=== PATIENT | male | born 1940 | race Caucasian/White ===

== ENCOUNTER 2019-11-22 12:54 | Outpatient (CLI) | payer MEDICARE, SELFPAY ==
--- NOTE | 2019-11-22 15:00 | NEURO_ITS ---
Patient Number: [id number] Impression: # Complains of numbness of lower extremities. 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 # Needle/EMG exam not requested. # Clinical correlation recommended. Nerve Conduction Studies Anti Sensory Summary Table Stim Site NR Peak (ms) P-T Amp (?V) Site1 Site2 Delta-P (ms) Dist (cm) Sami (m/s) Left Sup Fibular Anti Sensory (Ant Lat Mall) 14 cm 7.5 14.8 14 cm Ant Lat Mall 7.5 16.0 21 Right Sup Fibular Anti Sensory (Ant Lat Mall) NO RESPONSE 14 cm NR 14 cm Ant Lat Mall 16.0 Left Sural Anti Sensory (Lat Mall) Calf 3.2 11.7 Calf Lat Mall 3.2 16.0 50 Right Sural Anti Sensory (Lat Mall) NO RESPONSE Calf NR Calf Lat Mall 16.0 Motor Summary Table Stim Site NR Onset (ms) O-P Amp (mV) Site1 Site2 Delta-0 (ms) Dist (cm) Sami (m/s) Left Peroneal Motor (Vastus Med) Ankle 5.9 0.8 Popit Ankle 9.5 37.0 39 Popit 15.4 0.5 Right Peroneal Motor (Vastus Med) NO RESPONSE Ankle NR Popit Ankle 0.0 Popit NR Left Tibial Motor (Abd Padilla Brev) NO RESPONSE Ankle NR Knee NR Right Tibial Motor (Abd Padilla Brev) Ankle 5.5 0.2 Knee Ankle 11.4 42.0 37 Knee 16.9 0.2 F Wave Studies NR F-Lat (ms) L-R F-Lat (ms) Left Peroneal (Mrkrs) (EDB) 63.63 Right Peroneal (Mrkrs) (EDB) NO RESPONSE NR Left Tibial (Mrkrs) (Abd Hallucis) NO RESPONSE NR Right Tibial (Mrkrs) (Abd Hallucis) NO RESPONSE NR MTDD
== END 2019-11-22 12:55 | disposition home or self-care (01) ==
LOC: ANHNEURO 12:55
PROVIDERS: PCP Internal Medicine; Visit Provider Internal Medicine
DX: G62.9 Polyneuropathy, unspecified (principal)
CPT/HCPCS: 95910

== ENCOUNTER 2020-04-11 10:12 | Outpatient (CLI) | payer MEDICARE, SELFPAY ==
--- NOTE | ~2020-04-11 | CT_ITS ---
EXAMINATION: CT abdomen pelvis w con DATE: 04/11/2020 10:56 INDICATION: Prostate cancer TECHNIQUE: Computed tomography (CT) of the abdomen and pelvis was performed with 100 cc Omnipaque 350 intravenous contrast. Automated exposure control and iterative reconstruction technique were employe d. Exam dose: 674.24 mGy-cm total exam DLP. COMPARISON: None. FINDINGS: There is mild dependent atelectasis at the right lower lobe. There is more prominent discoi d atelectasis and/or scarring at the left lung base, left lower lobe. Normal heart size. Coronary artery calcification. No pericardial or pleural effusion. 8 and 13 mm right hepatic probable cysts. At least a couple of very small additional hepatic cysts ar e suggested. The gallbladder is present and appears unremarkable. No bile duct or pancreatic duct dilatation. No p ancreatic mass lesion or calcification. Normal splenic size. No adrenal mass lesion. 7.5 mm lower pole right renal cyst. 1.4 cm upper pole left renal cyst. 4 mm probable lateral mid left renal cyst. No urinary tract calculus or hydroureteronephrosis. There is prostate enlargement and calcification. There is moderate diffuse thickening of the urinary bladder wall. Normal appendix. Redundant sigmoid colon. There is a prominent amount of fecal material in the colon. There there are occasional diverticula of the left and right colon; no CT evidence of diverticulitis. No bowel obstruction, bowel wall thickening, pneumatosis or intraperitoneal free air. No intraperitoneal or retroperitoneal or pelvic mass lesion or adenopathy or ascites. There is calcification of the abdominal aorta and iliac arteries but no abdominal aortic aneurysm. No suspicious osteolytic or osteoblastic lesions. Diffuse idiopathic skeletal hyperostosis of the thoracic spine. Mild to moderate anterior wedge compression fracture deformity of L2. Moderate degenerative disc disease and mild retrolisthesis at L2-3. There is moderately severe degene rative disease at L3-4, L4-5 and L5-S1. IMPRESSION: Prostate enlargement and calcification; no prostate metastasis is evident Hepatic and renal cysts Diverticulosis of the colon; no CT evidence of diverticulitis Reviewed, dictated and finalized at [facility]. Reviewed, dictated and finalized at location [facility]. ATOR PILOT
--- NOTE | ~2020-04-11 | NM_ITS ---
EXAMINATION: NM bone scan whole body DATE: 04/11/2020 14:00 INDICATION: Prostate cancer. TECHNIQUE: 22.2 mCi Tc-99m HDP was administered intravenously. Delayed whole-body scintigrams were o btained. COMPARISON: CT abdomen and pelvis 04/11/2020 FINDINGS: There is joint-centered increased activity in the knees and hands without radiographic comp arison, likely osteoarthritis. There is joint-centered and disc-centered increased activity in the jerrod mbar spine correlating with spondylosis by CT. IMPRESSION: 1. No evidence of metastatic disease. Reviewed, dictated and finalized at location [facility]. TECHNICIAN
[2020-04-11 10:43] LABS: Estimated Glomerular Filt Rate > 60
== END 2020-04-11 10:13 | disposition home or self-care (01) ==
LOC: ANHIMG 10:14
PROVIDERS: PCP Internal Medicine; Visit Provider Urology
DX: C61 Malignant neoplasm of prostate (principal); N28.1 Cyst of kidney, acquired; K76.89 Other specified diseases of liver; K57.30 Diverticulosis of large intestine without perforation or abscess without bleeding
CPT/HCPCS: 74177; 78306; A9561; Q9967

== ENCOUNTER → 2020-05-24 00:57 | Outpatient (CLI) | payer MEDICARE, SELFPAY ==
[2020-05-24 19:13] LABS: SARS-CoV-2 RNA PCR Negative
== END ==
PROVIDERS: PCP Internal Medicine; Visit Provider Urology
DX: Z01.812 Encounter for preprocedural laboratory examination (principal); Z20.822 Contact with and (suspected) exposure to COVID-19
CPT/HCPCS: C9803; U0003; U0005

== ENCOUNTER 2020-05-27 01:45 | Day surgery (SDC) | payer MEDICARE, SELFPAY ==
[2020-05-20 13:48] VITALS: BMI 28.5
[2020-05-27] VITALS (7 sets, daily range): BP systolic 81–159; BP diastolic 52–85; PULSE 51–57; RESP 11–19; TEMP 36.2–36.6; O2SAT 96–100
--- NOTE | 2020-05-27 13:43 | WPDHPUPDATE1 ---
History and Physical Update Update Date/Time: 05/27/20 13:43 History and Physical has been reviewed, including an updated exam of the patient. There are NO changes in the patient's condition. Risks, benefits, and alternatives have been discussed and questions answered. Patient agrees to proceed with procedure. Proceed with space oar placement
[2020-05-27] MEDS: LACTATED RINGERS 1,000 ML 30 ML IV CONT (14:22)
--- NOTE | 2020-05-27 14:31 | WPDANESEPPF ---
Anes - Initial Pre Proc Eval Procedure: Operation Date: 05/27/20 15:30 Proposed Procedures p Insertion SpaceOAR Hydrogel System - Timmy Pa MD Date/Time: 05/27/20 14:31 Surgeon: Timmy Pa MD Pre Op Diagnosis: Prostate CA Patient Data Age: 80 Gender: M Height: 5 ft 8 in Weight: 83.1 kg Last Vital Signs Temp 36.6 C 05/27/20 13:35 Pulse 57 L 05/27/20 13:35 Resp 16 05/27/20 13:35 BP 149/85 H 05/27/20 13:35 Pulse Ox 100 05/27/20 13:35 Allergies Allergy/AdvReac Type Severity Reaction Status Date / Time atorvastatin [From Lipitor] AdvReac Intermediate Joint Pain Verified 05/27/20 13:31 pregabalin AdvReac Intermediate Swelling Verified 05/27/20 13:31 Home Medications Medication Instructions Recorded Confirmed Type amlodipine 10 mg HS 05/20/20 05/27/20 History aspirin [Aspir-81] 81 mg PO DAILY 05/20/20 05/27/20 History atorvastatin 10 mg DAILY 05/20/20 05/27/20 History carvedilol 25 mg PO BID 05/20/20 05/27/20 History finasteride 5 mg HS 05/20/20 05/27/20 History lisinopril 20 mg DAILY 05/20/20 05/27/20 History niacin 500 mg PO BID 05/20/20 05/27/20 History omeprazole 30 mg PO DAILY 05/20/20 05/27/20 History Patient hx anesthesia problems: none Family hx anesthesia problems: none [facility] Past Medical History Medical History (Updated 05/27/20 @ 14:32 by Simeon Carrillo MD) HTN (hypertension) Hyperlipidemia Prostate cancer Social History Social History Smoking packs per day: 1 Smoking cigarettes per day: 20.0 Years smoked: 10 Smoking pack-years: 10.00 Smoking status: Former smoker Tobacco type: cigarettes Second hand tobacco smoke exposure: No Additional smoking assessment comments: PT UNABLE TO RECALL WHEN QUITTING, STATES LONG TIME AGO Alcohol intake: current Alcohol use details: STATES MAY BE 1-2 DRINKS EVERY 3 MONTHS OR SO Substance use: never Substance use type: does not use Living arrangements: alone Spiritual care concerns: No Anes - Eval Final PreProcedure Day of Procedure 05/27/20 14:31 Patient weight: overweight Heart: regular rate and rhythm Lungs: clear to auscultation Airway: Mallampati scale class II Neurological: alert and oriented Last oral intake: >/= 8 hours ASA classification: III Emergent: no Anesthetic plan: proceed Anesthesia type and monitoring: general LMA and standard monitoring Informed Consent: The patient's anesthetic plan and its attendant risks and benefits were discussed with the patient/family/POA. Questions were solicited and answers provided to the satisfaction of the patient/family/POA.
[2020-05-27] MEDS: ceFAZolin 2 GM/D5W 50 ML 2 GM/50 ML BAG IVPB (15:12)
--- NOTE | 2020-05-27 15:28 | PM.PROC ---
Procedure Note - Detailed Date of procedure: 05/27/20 Pre-op diagnosis: Prostate CA Post-op diagnosis: same Procedure performed: space oar, and trus Description of procedure: Patient is taken to the operative suite and correctly identified. Once anesthesia was obtained he was placed in a dorsal lithotomy position and prepped in usual sterile fashion. Transrectal ultrasound was then performed. The prostate was visualized in both sagittal and transverse planes. Using a spinal needle we inserted into the plane between the prostate and the rectum. 1 cc of normal saline was injected to create the separation. There was no evidence of bleeding on aspiration. The space oar mixture was then injected into this plane. There was good separation of the prostate from the rectum. This visualized again in both sagittal and transverse planes. Patient tolerated procedure well without any complications and was taken recovery room stable condition. Anesthesia: GLMA Surgeon: Timmy Pa MD Drains: No Packing: No Pathology: none sent Complications: No immediate complications Condition: stable Disposition: PACU
== END 2020-05-27 17:00 | disposition home or self-care (01) ==
PROVIDERS: PCP Internal Medicine; Visit Provider Urology
PROC: (CPT 55874; principal; 2020-05-27 15:30)
DX: C61 Malignant neoplasm of prostate (principal); I10 Essential (primary) hypertension; E78.5 Hyperlipidemia, unspecified; Z87.891 Personal history of nicotine dependence; Z79.82 Long term (current) use of aspirin
CPT/HCPCS: 55874; A9270; C1889; C9803; J0690; J7120; U0003; U0005

== ENCOUNTER 2020-06-04 12:24 | Outpatient (CLI) | payer MEDICARE, SELFPAY ==
--- NOTE | ~2020-06-04 | MR_ITS ---
EXAMINATION: MR pelvis wo/w con DATE: 06/04/2020 13:46 INDICATION: Prostate cancer. TECHNIQUE: Magnetic resonance imaging (MRI) of the pelvis was performed without and with 16 mL MultiH ance intravenous contrast. Sequences included axial and coronal FS FIESTA, coronal T2-weighted FS FSE , axial T2-weighted FSE, axial STIR FSE, coronal and axial LAVA, axial dual-echo T1-weighted FSPGR, a nd axial DWI. Postcontrast sequences included coronal LAVA-flex and a time course of axial LAVA. COMPARISON: CT abdomen and pelvis 04/11/2020 FINDINGS: There are no dilated loops of bowel. The bladder is distended. The prostate is moderately enlarged. T here is a 3.0 x 1.6 cm fluid collection between the rectum and prostate, likely hematoma. There are n o pathologically enlarged lymph nodes. There is no osseous metastatic disease. IMPRESSION: 1. Moderately enlarged prostate. No evidence of metastatic disease. Reviewed, dictated and finalized at location A.
[2020-06-04 12:58] LABS: Estimated Glomerular Filt Rate > 60
== END 2020-06-04 12:25 | disposition home or self-care (01) ==
PROVIDERS: PCP Internal Medicine; Visit Provider Radiology Radiation Oncology
DX: C61 Malignant neoplasm of prostate (principal)
CPT/HCPCS: 72197; A9577

== ENCOUNTER 2020-06-26 21:52 | Emergency (ER) | payer MEDICARE, SELFPAY ==
--- NOTE | ~2020-06-26 | CT_ITS ---
EXAMINATION: CT brain wo con DATE: 06/27/2020 00:53 INDICATION: Dizziness TECHNIQUE: Computed tomography (CT) of the head was performed without intravenous contrast. The mA wa s adjusted according to patient size. Iterative reconstruction technique was employed. Exam dose: 60 5.33 mGy-cm total exam DLP. COMPARISON: 11/07/2018 MRI brain FINDINGS: Mixed fatty and calcific small lesion Left cerebellopontine angle, consistent with small dermoid. Bilateral basal ganglia calcifications. Bilateral carotid siphon internal carotid artery calcifications. There is nonspecific patchy diminish ed attenuation of the subcortical and periventricular cerebral white matter, likely due to chronic sm all vessel ischemic changes. No other intracranial mass lesion or any intracranial hemorrhage, midline shift or mass effect effect is evident. No subdural or epidural hematoma. No fracture or bone destruction of the cranial vault. Included paranasal sinuses and mastoid air cell s are normally developed and aerated. The orbital contents are unremarkable. 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 Reviewed, dictated and finalized at location A. 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
[2020-06-26 22:03] VITALS: BP 162/77; PULSE 62; RESP 18; TEMP 36.2; O2SAT 97
--- NOTE | 2020-06-26 22:22 | ECG_ITS ---
Measurements Intervals [place] Rate: 58 P: 35 CT: 177 QRS: 53 QRSD: 95 T: 10 QT: 407 QTc: 402 Interpretive Statements SINUS BRADYCARDIA INCOMPLETE RIGHT BUNDLE BRANCH BLOCK BASELINE ARTIFACT- I, II, III, AVR, AVL, AVF, V1 BORDERLINE ECG Electronically Signed On 06-27-2020 10:41:02 CDT by Benedicto Goldstein D.O.
[2020-06-27 00:23] VITALS: BP 152/82; BP 157/89; PULSE 62; RESP 15; RESP 17; TEMP 36.5; O2SAT 94; O2SAT 95
--- NOTE | 2020-06-27 00:31 | PC.NURSE ---
Pt presents to ED with complaints of dizziness. Pt states symptoms have been persistent for a while . Pt state when he moves or turns his head the dizziness increases; pt states dizziness is not as persistent as it was earlier. Pt denies hx of vertigo and similar episodes, chest pain and sob at this time. Pt states he also feels nauseous and denies emesis. Pt states when he walks he has to hold onto objects to help maintain his balance. Pt also complaining of mild headache rated 2/10 at this time that is noted to right anterior. Pt alert and oriented x4 with stable vitals and in no obvious distress at this time. Call button and personal items within reach. Pt advised to press call button for assistance.
--- NOTE | 2020-06-27 00:33 | PC.NURSE ---
EDMD presented to bedside. Pt states dizziness is more dominant when he turns his head fast.
--- NOTE | 2020-06-27 00:46 | PC.NURSE ---
Pt to ct via cart.
--- NOTE | 2020-06-27 00:53 | PC.NURSE ---
Pt returned from ct.
[2020-06-27 00:54] LABS: Basophils Percent Auto 0.4 % (0.2-1.2); Eosinophils Absolute Auto 0.1 K/mm3 (0-0.3); Eosinophils Percent Auto 0.9 % (0-4.4); Hematocrit 37.4 % (42.0-52.0); Hemoglobin 12.8 g/dL (14.0-18.0); Immature Granulocyte Absolute 0.02 K/mm3 (0.00-0.031); Immature Granulocyte Percent A 0.4 % (0-0.5); Lymphocytes Absolute Auto 0.63 K/mm3 (0.9-3.2); Lymphocytes Percent Auto 11.4 % (18.3-44.2); Mean Corpuscular HGB Conc 34.2 g/dl (32-36); Mean Corpuscular Hemoglobin 31.1 pg (26-34); Mean Platelet Volume 8.9 fl (7.4-10.4); Monocytes Absolute Auto 0.4 K/mm3 (0.1-0.6); Monocytes Percent Auto 6.5 % (2.6-8.5); Neutrophils Absolute Auto 4.4 K/mm3 (1.3-6.7); Neutrophils Percent Auto 80.4 % (45.5-73.1); Platelet Count Result 133 k/mm3 (150-375); Red Blood Count 4.11 M/mm3 (4.6-6.20); White Blood Count 5.5 K/mm3 (4.5-10.0)
[2020-06-27 01:00] LABS: Add Urine Microscopic? YES; Amorphous Sediment Urine Few; Appearance Urine Cloudy (Clear); Bilirubin Urine Negative (Negative); Blood Urine Negative (Negative); Color Urine Yellow (Yellow); Glucose Urine UA Negative (Negative); Ketones Urine Negative (Negative); Leukocyte Esterase Ur Negative LEU/UL (Negative); Mucus Urine Rare /lpf; Nitrate Urine Negative (Negative); Protein Urine Negative (Negative); RBC Urine 0-2 /hpf (0-2); Specific Grav Ur 1.016 (1.001-1.035); Squamous Epithelial Cell Urine Rare /hpf (Few); Urobilinogen Urine Negative mg/dL (<2.0)
[2020-06-27 01:03] LABS: Alanine Aminotransferase 24 U/L (4-50); Albumin Level 4.5 g/dL (3.5-5.1); Alkaline Phosphatase 86 U/L (38-126); Anion Gap 8 mmol/L (8-16); Aspartate Amino Transferase 41 U/L (17-59); Bilirubin,Total 0.4 mg/dL (0.2-1.3); Blood Urea Nitrogen 17 mg/dL (9-20); Calcium 9.6 mg/dL (8.4-10.2); Carbon Dioxide 26 mmol/L (22-30); Chloride 104 mmol/L (98-107); Estimated CRCL calculation 69 ml/min; Estimated Glomerular Filt Rate > 60; Glucose 159 mg/dL (75-110); Potassium 3.9 mmol/L (3.4-5.0); Sodium 138 mmol/L (137-145)
[2020-06-27] MEDS: SODIUM CHLORIDE 0.9% IV 1,000 ML 999 ML IV CONT (01:06)
[2020-06-27] MEDS: MECLIZINE HCL 25 MG TABLET PO (01:06)
[2020-06-27] MEDS: PROCHLORPERAZINE EDISYLATE 10 MG/2 ML VIAL IV PUSH (01:07)
--- NOTE | 2020-06-27 01:07 | PC.NURSE ---
Nephew presented to ED. No questions or concerns voiced. Pt resting on cart in its lowest position with call button and personal items within reach.
[2020-06-27 01:14] LABS: Troponin I < 0.012 ng/mL (0.000-0.034)
[2020-06-27 01:34] VITALS: BP 140/80; PULSE 63; RESP 18; O2SAT 98
--- NOTE | 2020-06-27 02:03 | PC.NURSE ---
Pt called nurse's station with need to urinate. Urinal provided.
--- NOTE | 2020-06-27 02:16 | PC.NURSE ---
IV fluids continue to infuse due to positional site. Will document stop time when completed.
--- NOTE | 2020-06-27 02:29 | PC.NURSE ---
Pt states he feels a little better. States dizziness has improved but is still present. On cart sleeping with nephew at bedside. Call button and personal items within reach. Advised to press call button for assistance.
[2020-06-27 02:40] VITALS: BP 109/59; PULSE 73; RESP 18; O2SAT 98
--- NOTE | 2020-06-27 02:50 | ED.GENADULT ---
HPI - General Adult General Chief complaint: Dizziness Stated complaint: Dizziness Time Seen by Provider: 06/27/20 00:25 History of Present Illness HPI narrative: Patient 80-year-old gentleman who presents the emergency department with chief complaint of dizziness. Patient reports that he started having episodes where he feels as though he feels dizzy whenever he turns his head from side to side. The patient states that he has had no change in his hearing reports he had some nausea and vomiting whenever he has these episodes. The patient reports that he has not had a runny nose or sore throat denies chest pain denies shortness of breath. Related Data Home Medications Medication Instructions Recorded Confirmed amlodipine 10 mg HS 05/20/20 05/27/20 aspirin 81 mg PO DAILY 05/20/20 05/27/20 atorvastatin 10 mg DAILY 05/20/20 05/27/20 carvedilol 25 mg PO BID 05/20/20 05/27/20 finasteride 5 mg HS 05/20/20 05/27/20 lisinopril 20 mg DAILY 05/20/20 05/27/20 niacin 500 mg PO BID 05/20/20 05/27/20 omeprazole 30 mg PO DAILY 05/20/20 05/27/20 Allergies Allergy/AdvReac Type Severity Reaction Status Date / Time atorvastatin [From Lipitor] AdvReac Intermediate Joint Pain Verified 05/27/20 13:31 pregabalin AdvReac Intermediate Swelling Verified 05/27/20 13:31 Review of Systems Review of Systems: Narrative: A 10 system review of systems was completed on the patient and is negative except for what is stated in the HPI. Nursing and ancillary documentation was reviewed. [facility] Past Medical History Medical History HTN (hypertension) Hyperlipidemia Prostate cancer Social History Social History Smoking packs per day: 1 Smoking cigarettes per day: 20.0 Years smoked: 10 Smoking pack-years: 10.00 Smoking status: Former smoker Tobacco type: cigarettes Second hand tobacco smoke exposure: No Additional smoking assessment comments: PT UNABLE TO RECALL WHEN QUITTING, STATES LONG TIME AGO Alcohol intake: current Substance use: never Substance use type: does not use Gender identity (if verbalized by the patient): Male Spiritual care concerns: No Exam Narrative: Exam Narrative: GENERAL: Well-appearing, well-nourished, and in no acute distress. HEAD: Normocephalic, atraumatic. EYES: PERRLA and EOMI. ENT: Nares clear, no rhinorrhea or epistaxis. Mucous membranes moist. NECK: Supple. CHEST: Clear to auscultation. No respiratory distress. HEART: Regular rate and rhythm. No murmur heard. Normal peripheral pulses. ABDOMEN: Soft, nontender, nondistended, normal active bowel sounds. EXTREMITIES: Normal range of motion. No edema. SKIN: Warm, dry, no rash. NEURO: No focal deficits. Alert and oriented x3. PSYCH: Normal mood and affect. Course Vital Signs Vital signs: Vital Signs Temperature 36.2 C L 06/26/20 22:03 Pulse Rate 62 06/26/20 22:03 Respiratory Rate 18 06/26/20 22:03 Blood Pressure 162/77 H 06/26/20 22:03 Pulse Oximetry 97 06/26/20 22:03 Temperature 36.5 C 06/27/20 00:23 Pulse Rate 73 06/27/20 02:40 Respiratory Rate 18 06/27/20 02:40 Blood Pressure 109/59 L 06/27/20 02:40 Pulse Oximetry 98 06/27/20 02:40 Medical Decision Making Vital Signs Vital Signs: Vital Signs Temperature 36.2 C L 06/26/20 22:03 Pulse Rate 62 06/26/20 22:03 Respiratory Rate 18 06/26/20 22:03 Blood Pressure 162/77 H 06/26/20 22:03 Pulse Oximetry 97 06/26/20 22:03 Temperature 36.5 C 06/27/20 00:23 Pulse Rate 73 06/27/20 02:40 Respiratory Rate 18 06/27/20 02:40 Blood Pressure 109/59 L 06/27/20 02:40 Pulse Oximetry 98 06/27/20 02:40 Lab Data Result diagrams: 06/27/20 00:42 06/27/20 00:42 Labs: Lab Results 06/27/20 06/27/20 06/27/20 Range/Units 00:42 00:42 00:42 WBC 5.5 (4.5-10.0) K/mm3
--- NOTE | 2020-06-27 03:07 | PC.NURSE ---
Pt ambulated [facility] with [facility] for assistance. Pt did fair and states dizziness is still present but he does feel better. Nephew, who is present at bedside, is concerned about pt being home alone. Will notify EDMD.
[2020-06-27 04:36] VITALS: BP 131/76; PULSE 77; RESP 19; TEMP 36.7; O2SAT 98
[2020-06-27 04:38] VITALS: BP 131/76; PULSE 77; RESP 19; TEMP 36.7; O2SAT 98
== END 2020-06-27 04:39 | disposition home or self-care (01) ==
PROVIDERS: Emergency Provider Emergency Medicine; PCP Internal Medicine
DX: H81.10 Benign paroxysmal vertigo, unspecified ear (principal); I10 Essential (primary) hypertension; E78.5 Hyperlipidemia, unspecified; Z85.46 Personal history of malignant neoplasm of prostate; Z87.891 Personal history of nicotine dependence; R00.1 Bradycardia, unspecified; I45.10 Unspecified right bundle-branch block
CPT/HCPCS: 36415; 70450; 80053; 81001; 84484; 85025; 93005; 96361; 96374; 99284; A9270; J0780; J7030

== ENCOUNTER 2020-09-25 01:46 | Day surgery (SDC) | payer MEDICARE, SELFPAY ==
[2020-09-11 10:31] VITALS: BMI 28.1
[2020-09-25 10:07] VITALS: BP 129/74; PULSE 66; RESP 16; TEMP 35.9; O2SAT 97
--- NOTE | 2020-09-25 10:12 | WPDANESEPPF ---
Anes - Initial Pre Proc Eval Procedure: Operation Date: 09/25/20 11:30 Proposed Procedures p Screening Colonoscopy - Goyo Alexander MD Date/Time: 09/25/20 10:12 Surgeon: Goyo Alexander MD Pre Op Diagnosis: hx of colon polyps Patient Data Age: 80 Gender: M Height: 1.73 m Weight: 80.2 kg Last Vital Signs Temp 35.9 C L 09/25/20 10:07 Pulse 66 09/25/20 10:07 Resp 16 09/25/20 10:07 BP 129/74 09/25/20 10:07 Pulse Ox 97 09/25/20 10:07 Allergies Allergy/AdvReac Type Severity Reaction Status Date / Time atorvastatin [From Lipitor] AdvReac Intermediate Joint Pain Verified 09/25/20 10:06 pregabalin AdvReac Intermediate Swelling Verified 09/25/20 10:06 Home Medications Medication Instructions Recorded Confirmed Type amlodipine 10 mg HS 05/20/20 09/11/20 History aspirin 81 mg PO DAILY 05/20/20 09/11/20 History atorvastatin 10 mg DAILY 05/20/20 09/11/20 History carvedilol 25 mg PO BID 05/20/20 09/11/20 History finasteride 5 mg HS 05/20/20 09/11/20 History lisinopril 20 mg DAILY 05/20/20 09/11/20 History niacin 500 mg PO BID 05/20/20 09/11/20 History Patient hx anesthesia problems: none Family hx anesthesia problems: none PMFSH Past Medical History Medical History GERD (gastroesophageal reflux disease) HTN (hypertension) Hyperlipidemia Neuropathy Prostate cancer Social History Social History Smoking packs per day: 1 Smoking cigarettes per day: 20.0 Years smoked: 10 Smoking pack-years: 10.00 Smoking status: Former smoker Tobacco type: cigarettes Second hand tobacco smoke exposure: No Additional smoking assessment comments: PT UNABLE TO RECALL WHEN QUITTING, STATES LONG TIME AGO Alcohol intake: current Alcohol use details: alcohol on a rare occasion Substance use: never Substance use type: does not use Living arrangements: alone Gender identity (if verbalized by the patient): Male Spiritual care concerns: No Anes - Eval Final PreProcedure Day of Procedure 09/25/20 10:12 Patient weight: overweight Heart: regular rate and rhythm Lungs: decreased breath sounds Airway: Mallampati scale class III Neurological: alert and oriented Last oral intake: >/= 8 hours ASA classification: III Emergent: no Anesthetic plan: proceed Anesthesia type and monitoring: general GIVS and standard monitoring Informed Consent: The patient's anesthetic plan and its attendant risks and benefits were discussed with the patient/family/POA. Questions were solicited and answers provided to the satisfaction of the patient/family/POA.
[2020-09-25] MEDS: LACTATED RINGERS 1,000 ML 150 ML IV CONT (10:19)
--- NOTE | 2020-09-25 10:25 | WPDGICN ---
Assessment and Plan Assessment and plan (1) History of colon polyps: Code(s): Z86.010 - Personal history of colonic polyps Status: Acute Assessment and Plan: Patient has a history of colon polyps. Most recently 2009. Surveillance colonoscopy 2016 was unremarkable. Plan is for colonoscopy at this time. Further recommendations will be given after endoscopy. (2) IBS (irritable bowel syndrome): Code(s): K58.9 - Irritable bowel syndrome without diarrhea Status: Acute Assessment and Plan: Patient with irregular bowel movements. Appears to be consistent with irritable bowel syndrome. Continue FiberCon on a daily basis and supplement this with MiraLax is advised. GI Consult Note Consult date/time: 09/25/20 10:25 HPI: Darin Ramos is a 80 year old male Presents for surveillance colonoscopy. Patient has a history of colon polyps 12 years ago by colonoscopy. Most recent exam 2015 was unremarkable. Patient denies any blood in his stools. He does have irregular bowel movements attributed to irritable bowel syndrome. He takes FiberCon daily supplements this with MiraLax frequently. Family history is noncontributory. Patient denies any recent blood in his stools. Review of Systems Review of Systems: All systems reviewed & are unremarkable except as noted in HPI and below PMFSH Past Medical History Medical History GERD (gastroesophageal reflux disease) HTN (hypertension) Hyperlipidemia Neuropathy Prostate cancer Social History Social History Smoking packs per day: 1 Smoking cigarettes per day: 20.0 Years smoked: 10 Smoking pack-years: 10.00 Smoking status: Former smoker Tobacco type: cigarettes Second hand tobacco smoke exposure: No Additional smoking assessment comments: PT UNABLE TO RECALL WHEN QUITTING, STATES LONG TIME AGO Alcohol intake: current Alcohol use details: alcohol on a rare occasion Substance use: never Substance use type: does not use Living arrangements: alone Gender identity (if verbalized by the patient): Male Spiritual care concerns: No Meds Home Medications and Allergies Home Medications Medication Instructions Recorded Confirmed Type amlodipine 10 mg HS 05/20/20 09/25/20 History aspirin 81 mg PO DAILY 05/20/20 09/25/20 History atorvastatin 10 mg DAILY 05/20/20 09/25/20 History carvedilol 25 mg PO BID 05/20/20 09/25/20 History finasteride 5 mg HS 05/20/20 09/25/20 History lisinopril 20 mg DAILY 05/20/20 09/25/20 History niacin 500 mg PO BID 05/20/20 09/25/20 History Allergies Allergy/AdvReac Type Severity Reaction Status Date / Time atorvastatin [From Lipitor] AdvReac Intermediate Joint Pain Verified 09/25/20 10:06 pregabalin AdvReac Intermediate Swelling Verified 09/25/20 10:06 Vital Signs Vital Signs - 24 hr 09/25/20 10:07 Temperature 96.6 F L Pulse Rate 66 Respiratory Rate 16 Blood Pressure 129/74 Pulse Oximetry 97 Exam Narrative: Exam Narrative: Physical exam reveals patient be alert. Vital signs stable. HEENT exam is unremarkable. Patient is anicteric. Lungs are clear to auscultation and percussion. Heart is without murmur or extra sounds. Abdominal exam bowel sounds are present soft nontender with no organomegaly. Digital external rectal exam is normal.
[2020-09-25 11:34] VITALS: BP 96/59; PULSE 60; RESP 21; O2SAT 95
[2020-09-25 11:44] VITALS: BP 109/69; PULSE 58; RESP 18; O2SAT 96
[2020-09-25 11:54] VITALS: BP 120/79; PULSE 56; RESP 20; O2SAT 96
== END 2020-09-25 12:20 | disposition home or self-care (01) ==
PROVIDERS: PCP Internal Medicine; Visit Provider Internal Medicine Gastroenterology
PROC: 0DJD8ZZ Inspection of Lower Intestinal Tract, Via Natural or Artificial Opening Endoscopic (ICD-10-PCS; CPT 45378; principal; 2020-09-25 11:30)
DX: Z12.11 Encounter for screening for malignant neoplasm of colon (principal); K63.5 Polyp of colon; K64.8 Other hemorrhoids; K58.9 Irritable bowel syndrome, unspecified; I10 Essential (primary) hypertension; E78.5 Hyperlipidemia, unspecified; G62.9 Polyneuropathy, unspecified; K21.9 Gastro-esophageal reflux disease without esophagitis; Z85.46 Personal history of malignant neoplasm of prostate; Z87.891 Personal history of nicotine dependence; Z79.82 Long term (current) use of aspirin
CPT/HCPCS: 45385; J2704; J7120

== ENCOUNTER 2021-01-05 01:51 | Day surgery (SDC) | payer MEDICARE, SELFPAY ==
[2020-12-19 11:12] VITALS: BMI 27.4
--- NOTE | 2021-01-05 11:14 | WPDANESEPP ---
Anes - Eval Pre Procedure Procedure: Operation Date: 01/05/21 12:30 Proposed Procedures p Esophagogastroduodenoscopy - Goyo Alexander MD Date/Time: 01/05/21 11:14 Surgeon: EGD Pre Op Diagnosis: nausea Patient Data Age: 81 Gender: M Height: 1.73 m Weight: 82 kg Allergies Allergy/AdvReac Type Severity Reaction Status Date / Time atorvastatin [From Lipitor] AdvReac Intermediate Joint Pain Verified 12/17/20 13:41 pregabalin AdvReac Intermediate Swelling Verified 12/17/20 13:41 Home Medications Medication Instructions Recorded Confirmed Type amlodipine 10 mg HS 05/20/20 12/19/20 History aspirin 81 mg PO DAILY 05/20/20 12/19/20 History atorvastatin 10 mg DAILY 05/20/20 12/19/20 History carvedilol 25 mg PO BID 05/20/20 12/19/20 History finasteride 5 mg HS 05/20/20 12/19/20 History lisinopril 20 mg DAILY 05/20/20 12/19/20 History niacin 500 mg PO BID 05/20/20 12/19/20 History omeprazole 20 mg capsule,delayed 20 mg PO DAILY 30 Days #30 cap 12/17/20 12/19/20 Rx release polyethylene glycol 3350 [Miralax] 17 g PO PRN PRN 12/19/20 12/19/20 History Patient hx anesthesia problems: none Family hx anesthesia problems: none Results Review: All pre-operative results and documents have been reviewed as part of the pre-operative evaluation. [facility] Past Medical History Medical History GERD (gastroesophageal reflux disease) History of colon polyps HTN (hypertension) Hyperlipidemia IBS (irritable bowel syndrome) Neuropathy Prostate cancer Smoker Social History Social History Smoking packs per day: 1 Smoking cigarettes per day: 20.0 Years smoked: 10 Smoking pack-years: 10.00 Smoking status: Former smoker Tobacco type: cigarettes Second hand tobacco smoke exposure: No Additional smoking assessment comments: PT UNABLE TO RECALL WHEN QUITTING, STATES LONG TIME AGO Alcohol intake: never Alcohol use details: alcohol on a rare occasion Substance use: never Substance use type: does not use Living arrangements: alone Gender identity (if verbalized by the patient): Male Spiritual care concerns: No Exam Day of Procedure 01/05/21 11:14 Patient weight: overweight Heart: regular rate and rhythm Lungs: clear to auscultation Airway: Mallampati scale class II Neurological: alert and oriented Risks: VR 58 SINUS BRADYCARDIA INCOMPLETE RIGHT BUNDLE BRANCH BLOCK BASELINE ARTIFACT- I, II, III, AVR, AVL, AVF, V1 BORDERLINE ECG
--- NOTE | 2021-01-05 11:16 | WPDGICN ---
Assessment and Plan Assessment and plan (1) Epigastric abdominal pain: Code(s): R10.13 - Epigastric pain Status: Acute Assessment and Plan: Patient with ongoing epigastric and left upper quadrant discomfort. Some component nausea is noted. Poor response to Pepcid and omeprazole. EGD will be performed to assess for ongoing organic disease. In the past patient is felt to have irritable bowel syndrome which per 2 potentially could be a contributing cause. He should stay on a bland diet further recommendations will be given after endoscopy. (2) History of colon polyps: Code(s): Z86.010 - Personal history of colonic polyps Status: Acute Assessment and Plan: Patient had a benign colon polyp removed from the colon several months ago. Consider follow-up colonoscopy instead several years if his general health allows. GI Consult Note Consult date/time: 01/05/21 11:16 HPI: Darin Ramos is a 81 year old male Presents for EGD. Patient reports ongoing epigastric and left upper quadrant discomfort. He states it feels like nausea. But has no sense of vomiting. He denies it being an overt pain. Is not related to eating. It is not better with eating or improved with eating. He initially tried Pepcid with minimal improvement. More recently has been on omeprazole 20mg p.o. daily and is uncertain whether this is helped. Overall he does feel improved compared to for that several weeks ago. He denies any dysphagia. He has had no bleeding. He denies any weight loss. Recent colonoscopy showed several polyps. His bowel habits improved on taking fiber supplements. He presents today for EGD because of ongoing epigastric and left upper quadrant discomfort. Review of Systems Review of Systems: All systems reviewed & are unremarkable except as noted in HPI and below PMFSH Past Medical History Medical History GERD (gastroesophageal reflux disease) History of colon polyps HTN (hypertension) Hyperlipidemia IBS (irritable bowel syndrome) Neuropathy Prostate cancer Smoker Social History Social History Smoking packs per day: 1 Smoking cigarettes per day: 20.0 Years smoked: 10 Smoking pack-years: 10.00 Smoking status: Former smoker Tobacco type: cigarettes Second hand tobacco smoke exposure: No Additional smoking assessment comments: PT UNABLE TO RECALL WHEN QUITTING, STATES LONG TIME AGO Alcohol intake: never Alcohol use details: alcohol on a rare occasion Substance use: never Substance use type: does not use Living arrangements: alone Gender identity (if verbalized by the patient): Male Spiritual care concerns: No Meds Home Medications and Allergies Home Medications Medication Instructions Recorded Confirmed Type amlodipine 10 mg HS 05/20/20 12/19/20 History aspirin 81 mg PO DAILY 05/20/20 12/19/20 History atorvastatin 10 mg DAILY 05/20/20 12/19/20 History carvedilol 25 mg PO BID 05/20/20 12/19/20 History finasteride 5 mg HS 05/20/20 12/19/20 History lisinopril 20 mg DAILY 05/20/20 12/19/20 History niacin 500 mg PO BID 05/20/20 12/19/20 History omeprazole 20 mg capsule,delayed 20 mg PO DAILY 30 Days #30 cap 12/17/20 12/19/20 Rx release polyethylene glycol 3350 [Miralax] 17 g PO PRN PRN 12/19/20 12/19/20 History Allergies Allergy/AdvReac Type Severity Reaction Status Date / Time atorvastatin [From Lipitor] AdvReac Intermediate Joint Pain Verified 12/17/20 13:41 pregabalin AdvReac Intermediate Swelling Verified 12/17/20 13:41 Exam Narrative: Physical exam reveals patient be alert. Vital signs stable. HEENT exam is unremarkable. Patient is anicteric. Lungs are clear to auscultation and percussion. Heart is without murmur or extra sounds. Abdominal exam bowel sounds are present soft nontender with no organomegaly. Digital external rectal exam is normal.
[2021-01-05 11:22] VITALS: BP 143/73; PULSE 53; RESP 20; TEMP 36.1; O2SAT 100; BMI 27.3
--- NOTE | 2021-01-05 11:29 | WPDANESEFPP ---
Anes - Eval Final PreProcedure Day of Procedure 01/05/21 11:29 Patient weight: overweight Heart: regular rate and rhythm Lungs: clear to auscultation Airway: Mallampati scale class II Neurological: alert and oriented Last oral intake: >/= 8 hours ASA classification: III Emergent: no Anesthetic plan: proceed Anesthesia type and monitoring: general GIVS and standard monitoring Results Review: All pre-operative results and documents have been reviewed as part of the pre-operative evaluation. Informed Consent: The patient's anesthetic plan and its attendant risks and benefits were discussed with the patient/family/POA. Questions were solicited and answers provided to the satisfaction of the patient/family/POA.
[2021-01-05] MEDS: LACTATED RINGERS 1,000 ML 150 ML IV CONT (11:30)
[2021-01-05 11:47] VITALS: BP 117/71; PULSE 60; RESP 20; O2SAT 100
[2021-01-05 11:57] VITALS: BP 126/77; PULSE 53; RESP 20; O2SAT 100
[2021-01-05 12:04] VITALS: BP 132/80; PULSE 51; RESP 20; O2SAT 100
== END 2021-01-05 12:23 | disposition home or self-care (01) ==
PROVIDERS: PCP Internal Medicine; Visit Provider Internal Medicine Gastroenterology
PROC: 0DJ08ZZ Inspection of Upper Intestinal Tract, Via Natural or Artificial Opening Endoscopic (ICD-10-PCS; CPT 43235; principal; 2021-01-05 12:30)
DX: R10.13 Epigastric pain (principal); R11.0 Nausea; Z86.010 Personal history of colon polyps; K21.9 Gastro-esophageal reflux disease without esophagitis; I10 Essential (primary) hypertension; E78.5 Hyperlipidemia, unspecified; K58.9 Irritable bowel syndrome, unspecified; G62.9 Polyneuropathy, unspecified; Z87.891 Personal history of nicotine dependence; Z79.82 Long term (current) use of aspirin
CPT/HCPCS: 43239; 87081; J2704; J7120

== ENCOUNTER → 2021-08-25 14:05 | Outpatient (CLI) | payer MEDICARE, SELFPAY ==
--- NOTE | ~2021-08-25 | XR_ITS ---
EXAM: [id number] DATE: 08/25/2021 14:20 HISTORY: Cervicalgia . COMPARISON: None available. FINDINGS: Craniocervical association and atlantoaxial joint are aligned, with moderate degenerative change. No prevertebral soft tissue swelling. 3 mm anterolisthesis of C3 on C4. 2 mm retrolisthesis o f C4 on C5. Vertebral body heights are maintained. Multilevel disc space narrowing and marginal osteo phytosis in the mid and lower cervical spine, severe at C6-7. Multilevel mild facet and uncovertebral joint hypertrophy. IMPRESSION: Grade 1 anterolisthesis of C3 on C4. Grade 1 retrolisthesis of C4 on C5. Multilevel degen erative disc disease, severe at C6-7. Reviewed, dictated and finalized at location K. IMPRESSION: Grade 1 anterolisthesis of C3 on C4. Grade 1 retrolisthesis of C4 o n C5. 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
== END ==
PROVIDERS: PCP Internal Medicine; Visit Provider Nurse Practitioner Family
DX: M50.323 Other cervical disc degeneration at C6-C7 level (principal)
CPT/HCPCS: 72040